=== PATIENT | female | born 1980 | race Caucasian/White ===

== ENCOUNTER → 2019-02-27 07:04 | Outpatient (CLI) | payer OTHER, MEDICAID, SELFPAY ==
[2019-02-27 08:01] LABS: Oligoclonal Banding REF LAB
--- NOTE | 2019-02-27 08:15 | RAD_ITS ---
PROCEDURE: Fluoroscopic guided Lumbar Puncture. DATE: February 27, 2019. CLINICAL INDICATION: History of possible multiple sclerosis. PHYSICIAN: Darius Peralta M.D. MEDICATIONS: 1% lidocaine administered subcutaneously for local anesthesia. ACCESS SITE: Lower posterior back. NEEDLE: 22-gauge spinal needle. SPECIMEN: Approximately 12 mL clear]CSF fluid. FLUOROSCOPY TIME (if supplied): (0:38) minutes/seconds COMPLICATIONS: None immediate. The risks, benefits, and alternatives to the procedure were explained to the patient. The specific risks of bleeding, infection, and neurovascular injury were detailed and accepted. Witnessed informed consent was obtained. The patient was placed on the fluoroscopic table in the prone position. The level for needle entry was determined and marked. The overlying skin was cleaned and prepped in the usual sterile fashion. 2% lidocaine was administered subcutaneously for local anesthesia. Under fluoroscopic guidance a 22-gauge spinal needle was advanced. The thecal sac was entered at the L2-L3 vertebral level. The inner stylet was removed. There was spontaneous flow of clear CSF fluid. The patient was placed in a reversed Trendelenburg position. Approximately 12 mL of cerebrospinal fluid was collected using gravity. The specimen was collected and submitted to the laboratory for further evaluation. The needle was withdrawn,. Hemostasis was achieved and a sterile dressing placed. The patient tolerated the procedure well without any immediate complications. The patient was placed supine with head elevated and returned to the floor in stable condition. RAD/Fluoro Guided Lumbar Puncture IMPRESSION: Successful fluoroscopic-guided lumbar puncture. Electronically Signed: Darius Peralta, at 10:15 EDT , Service support ,
[2019-02-27 08:27] VITALS: BP 103/61; PULSE 57; RESP 18; TEMP 36.6; O2SAT 100; BMI 20.7
--- NOTE | 2019-02-27 09:09 | CYSPIN_PTH ---
PATIENT: DARREN SANCHEZ LOC: PSN U#:[id number] AGE/SX: 44/F ROOM: RE02/27/[address]: GLO Tyler : 1980 BED: DIS: SPEC #: [id number] RECD: 02/27/19 12:18 STATUS: JOAN RELuanne #: [id number] YISSEL: 02/27/19 09:[address]: Amena Acosta CLINICAL QUALITY ASSURANCE SPECIALIST DEPT: CYTOLOGY RECD BY: Cristóbal Viveros ENTERED: 02/27/19 12:18 SP TYPE: CYSPIN FL BAYRON DR: Dr. Franco Le MD Tissues: Cerebrospinal Fluid Procedures: Pap Stain (control) Special Stain Group II Cytospin Fluid HEADER OPERATION: Lumbar puncture PRE-OP DIAGNOSIS: Possible MS TISSUE SUBMITTED: Cerebrospinal fluid for cytology DIAGNOSIS CYTOLOGY Cerebrospinal fluid for cytology (cytospin): Negative for malignant cells. See comment. BJ:delores 03/02/19 COMMENT Paucicellular specimen. CYTOLOGY STUDY Slides are reviewed. CYTOLOGY GROSS Received is 3 ml of clear colorless fluid labeled with the patient's name and and designated per the requisition as CSF. Submitted for cytology preparation. 02/27/19 TC:4 CPT: 00925
[2019-02-27 09:15] VITALS: BP 107/66; PULSE 61; RESP 18; O2SAT 96
[2019-02-27 09:20] LABS: Cytology, Body Fluid / CSF SEE PATHOLOGY REPORT
[2019-02-27 09:48] VITALS: BP 97/66; PULSE 63; RESP 18; O2SAT 98
[2019-02-27 09:52] LABS: Glucose Spinal Fluid 49 mg/dL (40-75)
[2019-02-27 10:04] LABS: Tested Tube # 1
[2019-02-27 10:05] LABS: Appearance CSF (character) CLEAR (Clear); Body Fluid QC Type(s) BF6Q; CSF Color COLORLESS (Colorless); RBC Count, Spinal Fluid 4 /mm-3 (None seen); White Count, CSF 0 /mm-3 (0 - 5)
[2019-02-27 10:07] LABS: Appearance CSF (character) CLEAR (Clear); CSF Color COLORLESS (Colorless); Tested Tube # 2
[2019-02-27 10:08] LABS: Body Fluid QC Type(s) BF6Q; RBC Count, Spinal Fluid 0 /mm-3 (None seen); White Count, CSF 0 /mm-3 (0 - 5)
[2019-02-27 10:32] VITALS: BP 104/64; PULSE 60; RESP 16; O2SAT 98
--- NOTE | 2019-02-27 15:48 | EEG ---
- Electroencephalogram Date of service 02/27/2019 History EEG is being done in this 38 yr F to rule out seizures EEG Description: This is an 18 channel EEG with 10-20 lead placement system. Bipolar montages, and Referential montages were reviewed. Photic stimulation and Hyperventilation were performed. The posterior dominant rhythm is 10 HZ synchronous, symmetric, reacting to eye opening and closing. Photo stimulation elicited normal driving response but no abnormal photoparoxysmal response, Hyperventilation did not elicit any abnormal photoparoxysmal response. Sleep was identified. There is no abnormal background slowing noted. There was no epileptiform discharges or electrographic seizures noted during this recording. Muscle artefact noted during the record. EEG Interpretation This is a normal awake and asleep EEG. There is no epileptiform discharges or electrographic seizures noted during the record.
[2019-03-02 12:15] LABS: Pathologist Review Reviewed
[2019-03-02 12:16] LABS: Pathologist Review Reviewed
--- NOTE | 2019-03-02 12:47 | NURSING ---
saturday pt called into radiology to talk with the nurse, francie ratliff took the call and patient really wanted to talk to the radiology nurse. Francie texted me at [phone] unfortunately did not see the text till around 1630 did return the call to the patient and talked at length with her about her symptons and her treatement. Pt stated she had tingling and numbness in shoulder going to her arms, and a headache, she did state the headache was okay as long as she laid flat, and the numbness in her lower arms was better after her ER visit on Saturday. Francie ratliff did call the patient back when I did not respond and she had the patient talk to an ER nurse. The patient had been in contact with her nerologist during this time Called patient now and she was on her way home from the hospital from getting a blood patch, stated she felt better, headache was almost gone and her numbness and tingling was much improved.
[2019-03-02 16:07] LABS: PROEL- A/G Ratio 1.3 (0.7-1.7); PROEL- Albumin 4.1 g/dL (2.9-4.4); PROEL- Alpha-1 Globulin 0.2 g/dL (0.0-0.4); PROEL- Alpha-2 Globulin 0.6 g/dL (0.4-1.0); PROEL- Beta Globulin 0.9 g/dL (0.7-1.3); PROEL- Gamma Globulin 1.4 g/dL (0.4-1.8); PROEL- Globulin, Total 3.1 g/dL (2.2-3.9); PROEL- TOTAL PROTEIN 7.2 g/dL (6.0-8.5)
[2019-03-03 08:38] LABS: Myelin Basic Protein, MBP 2.7 ng/mL (0.0-1.2)
[2019-03-03 08:38] LABS: Immunoglobulin G 1167 mg/dL (700-1600)
== END ==
PROVIDERS: Family Provider Family Medicine; PCP Family Medicine; Referring Provider Registered Nurse; Visit Provider Registered Nurse
DX: R41.3 Other amnesia (principal)
CPT/HCPCS: 62270; 77003; 82784; 82945; 83873; 83916; 84157; 84165; 87070; 87205; 88108; 88313; 89050; 89051; 95819

== ENCOUNTER 2019-02-27 22:08 | Emergency (ER) | payer OTHER, MEDICAID, SELFPAY ==
[2019-02-27 08:27] VITALS: BMI 20.7
[2019-02-27 22:10] VITALS: BP 127/85; PULSE 63; RESP 18; TEMP 36.7; O2SAT 99; BMI 20.7
--- NOTE | 2019-02-27 22:53 | ED.VISSUMM ---
- ER Visit Summary Date of Service: 02/27/19 Chief Complaint: Back and neck pain History of Present Illness: The patient is a 38 F who presents with back and neck pain that began today. Patient states she had a lumbar puncture performed today and radiology. Patient states she laid flat for 1 hour after the procedure. Patient states that she had an EEG after the lumbar puncture. Patient states that while she was having the EEG she felt pain in her upper back and neck that radiated to the posterior upper arms. Patient states she laid down and felt better. Patient states that throughout the day she noted persistent pain in her neck and back whenever she sat up or stood up. Patient states the pain radiates to the posterior aspects of her arms when she sits up or stands up as well. Patient denies any headaches. Patient denies any visual changes. Patient denies any nausea or vomiting. Patient states the lumbar puncture and EEG were ordered by Dr. Holman. Patient states she called Dr. Villalba who is covering. He advised the patient to come to the emergency department. Physical Examination: Vital signs are stable. Patient is afebrile. Patient is in no acute distress. Oral mucosa is pink and moist. Neck is supple. Trachea is midline. There is some mild paraspinal tenderness. There is no meningeal signs. There is some mild tenderness over the upper thoracic paraspinal muscles as well. There is no bony crepitance or step-off. Heart was regular rate and rhythm. Lungs are clear and equal bilaterally. Abdomen is soft and nontender. Cranial nerves II through XII are intact. There are no focal motor or sensory deficits noted. Emergency Department Course and Treatment: Patient was given IV fluids and IV caffeine. Disposition: Care of the patient was signed out to the oncoming physician for reevaluation. Impression: Post lumbar puncture headache This note was generated with [employer] dictation software. It may contain incorrect words, spelling, and punctuation that were not noted in review of the chart prior to signing ED Disposition - Plan for ED Patient: Referrals: Franco Le [Primary Care Provider] -
[2019-02-27] MEDS: 0.9% Normal Saline 1,000 ML 1000 ML IV (23:02)
--- NOTE | 2019-02-28 00:49 | ED.DEP ---
ED Disposition - Plan for ED Patient: Instructions: HEADACHE After Spinal Tap (No Patch) Referrals: Franco Le [Primary Care Provider] -
[2019-02-28] MEDS: Acetaminophen/Butalbital/Caffe 1 Tablet PO (03:06)
[2019-02-28 03:10] VITALS: PULSE 71; RESP 14; O2SAT 100
== END 2019-02-28 03:12 | disposition home or self-care (01) ==
LOC: ED 22:34
PROVIDERS: Emergency Provider Emergency Medicine; Family Provider Family Medicine; PCP Family Medicine
DX: G97.1 Other reaction to spinal and lumbar puncture (principal); Y84.4 Aspiration of fluid as the cause of abnormal reaction of the patient, or of later complication, without mention of misadventure at the time of the procedure
CPT/HCPCS: 96365; 99284; J7030; J7040

== ENCOUNTER 2019-03-02 09:16 | Day surgery (SDC) | payer OTHER, MEDICAID, SELFPAY ==
[2019-03-02 09:16] VITALS: BP 135/81; PULSE 84; RESP 19; TEMP 37.2; O2SAT 99; BMI 20.7
--- NOTE | 2019-03-02 09:27 | ED.VIS.GEN ---
History of Present Illness Chief Complaint: Headache Informant: Patient Onset: Days - Onset February 27 after lumbar puncture to evaluate for MS Context: Sudden Onset Timing: Intermittent Quality: Pain Location: Head posterior neck Current Severity: Mild Maximum Severity: Severe Worsened by: Upright was Relieved by: Supine Associated Symptoms: Nausea and tingling left upper extremity Narrative: Patient is a 38-year-old woman who had an outpatient lumbar puncture performed Saturday. She was seen Saturday evening for spinal headache. She was offered blood patch. She declined because her symptoms had improved. She presents because her symptoms are not worse. She denies fever, chills night sweats. Denies double vision, blurred vision or loss of vision. She presently denies numbness in her upper extremities. She does report nausea and has had vomiting. She has no other complaints. Prior similar symptoms: Yes Recent Illness/Hospitalization: Yes - Past Medical History (1) No significant past medical history Status: Acute Past Medical History - Allergies and Home Meds Allergies/Adverse Reactions: Allergies No Known Allergies Allergy (Verified 02/27/19 22:12) Primary Care Physician: Franco Le [Primary Care Provider] - Prior records reviewed: Yes Surgical History: noncontributory Lives: Spouse/ Significant Other Smoking Status: Never smoker Alcohol: Rare Drugs: None Review of Systems General: Denies: Chills, Fever, Malaise, Subjective, Sweats, Weight loss, - Eyes: Denies: Visual changes - bilaterally, Blurred Vision - bilaterally, Diplopia ENT: Denies: Left ear pain, Right ear pain, Rhinorrhea, Sore throat Cardiovascular: Denies: Chest pain, Palpitations Respiratory: Denies: Dyspnea, Cough, Sputum, Dyspnea on exertion Gastrointestinal: Reports: Nausea, Vomiting. Denies: Abdominal pain, Diarrhea Musculoskeletal: Reports: Neck pain. Denies: Myalgias, Arthralgias, Back pain, Swelling, Extremity Pain, -, - Neurological: Reports: Headache, Parasthesia. Denies: Weakness, Numbness Physical Exam Vital Signs/Narrative: Vital Signs Temp Pulse Resp BP Pulse Ox 03/02/19 09:16 98.9 F 84 19 H 135/81 H 99 Inital Vital Signs reviewed: Yes General: Well nourished, Well developed, No Acute Distress Head: Normocephalic, Atraumatic Eyes: Perrl, EOMI. Negative for: Pale conjunctiva, Scleral icterus, - ENT: No rhinorrhea, TM's clear Neck: Supple, Nontender, No lymphadenopathy, No JVD Cardiovascular: Regular rate, Regular rhythm, No murmurs, Normal S1, Normal S2 Respiratory: No distress, CTA bilaterally, Chest nontender Extremities: Nontender, No edema Skin: Normal color, No rash, No Trauma. Negative for: Cyanosis, Diaphoresis, Jaundice Neurological: Alert, Oriented x3, Cranial nerves II-XII grossly intact, Normal Strength, Normal Sensation Psychological: Normal affect, Normal Mood Diagnostic/Tx/Re-eval - Medical Decision Making Patient history is consistent with spinal headache. Since neuro exam is nonfocal anesthesia was paged to determine if they are able to perform a blood patch. Poke with Dr. Caleb Jaime who requested patient be sent to PACU. He will perform blood patch. ED Disposition - Plan for ED Patient: Disposition: Home or Assisted Living Diagnosis: Spinal puncture headache Instructions: HEADACHE After Spinal Tap (No Patch) Referrals: Franco Le [Primary Care Provider] -
[2019-03-02 10:30] VITALS: BP 107/62
== END 2019-03-02 12:35 | disposition home or self-care (01) ==
LOC: ED 13:41 → SDC 13:41 → AC 13:42
PROVIDERS: Emergency Provider Emergency Medicine; Family Provider Family Medicine; PCP Family Medicine; Visit Provider Anesthesiology
PROC: 3E0R3GC Introduction of Other Therapeutic Substance into Spinal Canal, Percutaneous Approach (ICD-10-PCS; CPT 62273; principal; 2019-03-02 12:55)
DX: G97.1 Other reaction to spinal and lumbar puncture (principal); Y84.4 Aspiration of fluid as the cause of abnormal reaction of the patient, or of later complication, without mention of misadventure at the time of the procedure; Y92.9 Unspecified place or not applicable
CPT/HCPCS: 62273; 99282; J7120

== ENCOUNTER → 2020-04-12 14:30 | Outpatient (CLI) | payer OTHER, MEDICAID, SELFPAY ==
[2020-04-15 16:28] LABS: HPV Reflexed? NOT INDICATED
== END ==
PROVIDERS: PCP Family Medicine; Visit Provider Obstetrics & Gynecology
DX: Z12.4 Encounter for screening for malignant neoplasm of cervix (principal)
CPT/HCPCS: 88175; G0145

== ENCOUNTER → 2023-08-06 | Outpatient (CLI) | payer OTHER, MEDICAID, SELFPAY ==
--- OUTSIDE RECORDS SUMMARY | 2023-08-06 16:00 | XMS RPT_ITS | CCD ---
Author Name Unknown Address [address] [place] [address] Organization [facility] Care Team Providers Care Recep Name Role Phone RAMYA BALDERAS CNM Primary Care Unavailable BALDERASANAYLY CNM Attending Unavailable BALDERASANAYLY CNM Admitting Unavailable JACKI PAL Consulting Unavailable PROVIDER, UNKNOWN Consulting Unavailable PROVIDER, UNKNOWN Consulting Unavailable PROVIDER, UNKNOWN Consulting Unavailable BALDERASVALENTINARAMYA CNM Attending Unavailable BALDERAS, RAMYA CNM Admitting Unavailable BALDERASVALENTINARAMYA CNM Primary Care Unavailable JACKI PAL Consulting Unavailable PROVIDER, UNKNOWN Consulting Unavailable PROVIDER, UNKNOWN Consulting Unavailable PROVIDER, UNKNOWN Consulting Unavailable BALDERASANAYLY CNM Primary Care Unavailable BALDERAS, RAMYA CNM Attending Unavailable BALDERAS, RAMYA CNM Admitting Unavailable JACKI PAL Consulting Unavailable PROVIDER, UNKNOWN Consulting Unavailable PROVIDER, UNKNOWN Consulting Unavailable PROVIDER, UNKNOWN Consulting Unavailable TRUSS, MARIAELENA DO Attending Unavailable TRUSS, MARIAELENA DO Admitting Unavailable JACKI PAL Referring Unavailable JACKI PAL Consulting Unavailable TRUSS, MARIAELENA DO Primary Care Unavailable PROVIDER, UNKNOWN Consulting Unavailable PROVIDER, UNKNOWN Consulting Unavailable PROVIDER, UNKNOWN Consulting Unavailable BALDERASVALENTINARAMYA CNM Primary Care Unavailable BALDERAS, RAMYA CNM Attending Unavailable BALDERAS, RAMYA CNM Admitting Unavailable JACKI PAL Consulting Unavailable PROVIDER, UNKNOWN Consulting Unavailable PROVIDER, UNKNOWN Consulting Unavailable PROVIDER, UNKNOWN Consulting Unavailable DAVID PATEL T Attending Unavailable JORGEDAVID BROWNLEE T Admitting Unavailable JORGEDAVID BROWNLEE T Primary Care Unavailable JACKI PAL Consulting Unavailable PROVIDER, UNKNOWN Consulting Unavailable PROVIDER, UNKNOWN Consulting Unavailable PROVIDER, UNKNOWN Consulting Unavailable BALDERAS, RAMYA CNM Primary Care Unavailable BALDERAS, RAMYA CNM Attending Unavailable BALDERAS, RAMYA CNM Admitting Unavailable JACKI PAL Consulting Unavailable PROVIDER, UNKNOWN Consulting Unavailable PROVIDER, UNKNOWN Consulting Unavailable PROVIDER, UNKNOWN Consulting Unavailable AZRA MARINO Primary Care Unavailable JACKI PAL Consulting Unavailable AZRA MARINO Smita Admitting Unavailable AZRA MARINO Attending Unavailable PROVIDER, UNKNOWN Consulting Unavailable PROVIDER, UNKNOWN Consulting Unavailable PROVIDER, UNKNOWN Consulting Unavailable RAMYA BALDERAS CNM Primary Care Unavailable RAMYA BALDERAS CNM Attending Unavailable RAMYA BALDERAS CNM Admitting Unavailable JACKI PAL Consulting Unavailable PROVIDER, UNKNOWN Consulting Unavailable PROVIDER, UNKNOWN Consulting Unavailable PROVIDER, UNKNOWN Consulting Unavailable RAMYA BALDERAS CNM Primary Care Unavailable RAMYA BALDERAS CNM Admitting Unavailable RAMYA BALDERAS CNM Attending Unavailable BROWN, JACKI Consulting Unavailable PROVIDER, UNKNOWN Consulting Unavailable PROVIDER, UNKNOWN Consulting Unavailable PROVIDER, UNKNOWN Consulting Unavailable Marilee Uriostegui DO Primary Care Provider Unava ilable BEELIZABETH FANG Attending Unavailable ELIZABETH PALOMO Referring Unavailable MARILEE URIOSTEGUI Primary Care Unavailable MARILEE URIOSTEGUI Primary Care Unavailable ELIZABETH PALOMO Attending Unavailable BEELIZABETH FANG Admitting Unavailable URIOSTEGUIMARILEE HUNT Primary Care Unavailable ROMEO HADDAD Attending Unavailable Medications Completed/Discontinued Medications Medication Drug Class(es) Dates Sig (Normalized) Sig (Original) dexamethasone phosphate 10 mg/ml injectable solution (1 source) Corticosteroid Start: 05-18-2023 End: 05-18-2023 Dexamethasone (DECADRON) injection 10 mg Problems Active Problems Problem Classification Problem Date Documented Da te Episodic/Chronic Other upper respiratory infections (4 sources) Viral upper respiratory tract infection; Translations: [Acute upper respiratory infection, unspecified] Onset: 05-18-2023 05-18-2023 Episodic Past or Other Problems Problem Classification Problem Date Documented Da te Episodic/Chronic Acute bronchitis (1 source) Acute bronchitis, unspecified; Translations: [Acute bronchitis, unspecified] Onset: 12-02-2022 Episodic Other and delivery including normal (3 sources) Encounter for routine follow-up; Translations: [Encounter for supervision of other normal , second trimester] Onset: 09-14-2021 Episodic Pleurisy; pneumothorax; pulmonary collapse (1 source) Pleurisy; Translations: [Pleurisy] Onset: 12-02-2022 Episodic Residual codes; unclassified (1 source) 29 weeks gestation of ; Translations: [29 weeks gestation of ] Onset: 07-25-2021 Episodic Results Test Name Value Interpretation Reference Range Facil ity Vital Signs Date Time Vital Sign Value Performing Clinician Facility 05-18-2023 22:54-0400 Diastolic blood pressure 72 mm[Hg] Romeo Haddad MD Work Phone: [facility] 05-18-2023 22:54-0400 Heart rate 68 /min Romeo Haddad MD Work Phone: [facility] 05-18-2023 22:54-0400 SaO2% (BldA) [Mass fraction] 98 % Romeo Haddad MD Work Phone: [facility] 05-18-2023 22:54-0400 Systolic blood pressure 118 mm[Hg] Romeo Haddad MD Work Phone: [facility] 05-18-2023 22:02-0400 Body height 175.3 cm Romeo Haddad MD Work Phone: [facility] 05-18-2023 22:02-0400 Body mass index (BMI) [Ratio] 20.67 kg/m2 Romeo Haddad MD Work Phone: [facility] 05-18-2023 22:02-0400 Body temperature 99 [degF] Romeo Haddad MD Work Phone: [facility] 05-18-2023 22:02-0400 Body weight 63.5 kg Romeo Haddad MD Work Phone: [facility] 05-18-2023 22:02-0400 Respiratory rate 18 /min Romeo Haddad MD Work Phone: [facility] Encounters Encounter Date Encounter Type Care Provider Facility Start: 05-18-2023 End: 05-19-2023 Emergency department patient visit MARILEE URIOSTEGUI [facility] Start: 05-18-2023 End: 05-18-2023 Emergency department patient visit Romeo Haddad MD Work Phone: [facility] Emergency Dept Procedures Date Procedure Procedure Detail Performing Clinician Start: 05-18-2023 Iadna streptococcus group a amplified probe tq Romeo Haddad MD Work Phone: Plan of Treatment Date Care Activity Detail Author Start: 03-15-2023 Influenza vaccination given INFLUENZA VACCINE (#1) [facility] Start: 2021 Screening for malignant neoplasm of breast MAMMOGRAM [facility] Start: 12-22-1999 ANNUAL WELLNESS VISIT ANNUAL WELLNESS VISIT [facility] Start: 1993 Depression screening using PHQ-9 (Patient Health Questionnaire 9) score DEPRESSION SCREENING [facility] Start: 1992 Administration of diphtheria + tetanus + acellular pertussis vaccine DTAP/TDAP/TD VACCINE (1 - Tdap) [facility] Start: 06-22-1982 COVID-19 VACCINE (#1) COVID-19 VACCINE (#1) [facility] Start: 1981 HPV/COTEST HPV/COTEST [facility] Start: 1981 Screening for malignant neoplasm of cervix [facility] End: 05-18-2023 Influenza virus A and B RNA and SARS-CoV-2 (COVID-19) N gene panel - Respiratory specimen by IVY with probe detection SARS-COV-2, Flu A, FLU B (PCR) Panel Microbiology SAMMY One Time for 1 Occurrences starting 05/18/2023 until 05/18/2023 [facility] Work Phone: Payers Date Payer Category Payer Private Health Insurance [facility] [id number] 2022-Present [phone] [address] [place] [address] Medicaid [id number] 2016 Unknown [employer] [id number] 2016-Present [phone] [address] [place] [address] Indemnity [id number] 1980 Unknown [id number] [id number]. 651 1981 Unknown [id number] 2.16.840.1.661049.3.579.2. 651 1980 Unknown [id number] 2.16.840.1.853939.3.579.2. 651 1980 Unknown [id number] 2.16.840.1.167837.3.579.2. 651 1980 Unknown [id number] 2.16.840.1.125809.3.579.2. 651 1980 Unknown [id number] 2.16.840.1.099009.3.579.2. 651 1980 Unknown [id number] 2.16.840.1.055670.3.579.2. 651 1980 Unknown [id number] 2.16.840.1.173029.3.579.2. 651 1980 Unknown [id number] 2.16.840.1.313207.3.579.2. 1 1980 Unknown [id number] 2.16.840.1.752921.3.579.2. 651 1980 Unknown [id number] 2.16.840.1.708974.3.579.2. 297 1980 Unknown [id number] 2.16.840.1.526031.3.579.2. 297 1980 Unknown [id number] 2.16.840.1.715696.3.579.2. 297 Medicaid [id number] Private Health Insurance [id number] Unknown [id number] Unknown [id number] Unknown [id number] Social History Date Type Detail Facility Tobacco smoking status OKIS Tobacco smoking consumption unknown [facility] Start: 11-09-2013 End: 05-18-2023 History of Social function [facility] Start: 11-09-2013 End: 05-18-2023 Tobacco use panel [facility] Brief social Pay for mortgage/rent Not on file [facility] Start: 1980 Sex Assigned At Not on file [facility] Emergency department Note 05-18-2023 Azra Ely RN - 05/18/2023 10:53 PM EDT Note Date & Type Note Facility 05-18-2023 Emergency department Note Discharge paperwork gone over. No further questions at this time. Respirations easy and unlabored. [facility] Emergency department Note 05-18-2023 Azra Ely RN - 05/18/2023 10:53 PM EDSerjio Donato RN - 05/18/2023 9:59 PM EDT Note Date & Type Note Facility 05-18-2023 Emergency department Note Discharge paperwork gone over. No further questions at this time. Respirations easy and unlabored. Pt states that Tone she began having nasal/ chest congestion and symptoms have progressed to sore throat. Pt reports white patches in back of throat Pt is alert and oriented x 4 RR are equal and unlabored Skin PWD documented in this encounter [facility] Emergency department Triage note 05-18-2023 Serjio Lundy RN - 05/18/2023 9:59 PM EDT Note Date & Type Note Facility 05-18-2023 Emergency department Triage note Pt states that Tone she began having nasal/ chest congestion and symptoms have progressed to sore throat. Pt reports white patches in back of throat Pt is alert and oriented x 4 RR are equal and unlabored Skin PWD [facility] Evaluation note Note Date & Type Note Facility documented in this encounter [facility] Hospital Discharge instructions Attachments Note Date & Type Note Facility Hospital Discharge instructions The following attachments cannot be sent through Care Everywhere.Sore Throat (Finnish Bahamian)URI (Upper Respiratory Infection) (Finnish Bah[place]ian)documented in this encounter [facility] Summary Purpose Family History No Family History Records FoundNo Family History Records FoundNo Family History Records FoundNo Family History Records FoundNo Family History Records Found Advance Directives No Advanced Directives Records FoundNo Advanced Directives Records FoundNo Advanced Directives Records FoundNo Advanced Directives Records FoundNo Advanced Directives Records Found Additional Source Comments INFORMATION SOURCE (unrecogn ized section and content) DATE CREATED AUTHOR AUTHOR'S ORGANIZ ATION 02/01/2022 [facility] ([place]) DATE CREATED AUTHOR AUTHOR'S ORGANIZ ATION 06/22/2022 [facility] DATE CREATED AUTHOR AUTHOR'S ORGANIZ ATION 10/01/2022 [facility] DATE CREATED AUTHOR AUTHOR'S ORGANIZ ATION 05/19/2023 [facility] Reason for Visit (unrecogniz ed section and content) Scheduled Active and Recently Administ ered Medications (unrecognized section and content) Care Teams (unrecognized sec tion and content) FOR RECORDS PERTAINING TO PATIENTS WHO ARE OR HAVE BEEN ENROLLED IN A CHEMICAL DEPENDENCY/SUBSTANCEABUSE PROGRAM, SOME INFORMATION MAY BE OMITTED. This clinical summary was aggregated from multiple sources. Caution should be exercised in using it in the provision of clinical care. This summary normalizes information from multiple sources, and as a consequence, information in this document may materially change the coding, format and clinical context of patient data. In addition, data may be omitted in some cases. CLINICAL DECISIONS SHOULD BE BASED ON THE PRIMARY CLINICAL RECORDS. [employer] provides no warranty or guarantee of the accuracy or completeness of information in this document.
[2023-08-06 16:20] LABS: Absolute Lymphocyte Count 2.55 X10^3/uL (0.83-4.51); Absolute Neutrophil Count 4.8 X10^3/uL (2.0-7.7); Basophil# 0.05 X10^3/uL; Basophil% 0.6 % (0-1); Eosinophil# 0.34 X10^3/uL; Eosinophils% 4.1 % (0-5); Hematocrit 41.1 % (37-47); Hemoglobin 13.9 g/dL (12.0-15.0); Lymphocyte # 2.55 X10^3/ul (0.83-4.51); Lymphocyte % 30.9 % (19-41); Mean Corp Hgb Conc 33.8 g/dL (32-36); Mean Corpuscular Hgb 31.6 pg (27.0-32.0); Mean Corpuscular Volume 93.4 fL (81-99); Mean Platelet Vol. 9.9 fl (6.2-12.0); Monocyte# 0.53 X10^3/uL; Monocyte% 6.4 % (0-10); NRBC Flagged by Analyzer 0 % (0-5); Neutrophil # 4.75 X10^3/uL (2.7-7.7); Neutrophil % 57.8 % (47-70); Platelet Count 216 K/mm3 (150-450); RBC Distribution Width CV 11.8 % (11.6-14.6); RBC Distribution Width SD 40.8 fl (35.1-43.9); White Blood Count 8.2 K/mm3 (4.4-11.0)
[2023-08-06 16:45] LABS: Vitamin B12 542 pg/mL (211-911); Vitamin D,25 Hydroxy 41.5 ng/mL
[2023-08-06 17:09] LABS: AST(SGOT) 21 U/L (15-37); Alanine Aminotransfer ALT/SGPT 27 U/L (13-56); Albumin, Serum 3.9 g/dL (3.2-5.0); Alkaline Phosphatase 76 U/L (45-117); Anion Gap 2 (5-15); BUN 11 mg/dL (7-18); BUN/Creat Ratio 13.7 RATIO (10-20); Calcium,Total 9.4 mg/dL (8.5-10.1); Chloride 105 mmol/L (98-107); Cholesterol 149 mg/dL (200); EST Glomerular Filtration Rate 83 mL/min (>60); Est Glom Filt Rate - Afr Amer 101 mL/min (>60); Ferritin 37 ng/mL (8-252); Glucose 101 mg/dL (74-106); High Density Lipoprotein 73 mg/dL; Potassium 4.2 mmol/L (3.5-5.1); Protein, Total 7.9 g/dL (6.4-8.2); Sodium Level 137 mmol/L (136-145); Thyroid Stim Hormone (TSH) 2.43 uIU/mL (0.358-3.74); Triglycerides 107 mg/dL; Very Low Density Lipoprotein 21 mg/dL (5-40)
== END | disposition home or self-care (01) ==
LOC: LAB 15:32
PROVIDERS: PCP Physician Assistant; Referring Provider Internal Medicine Endocrinology, Diabetes & Metabolism; Visit Provider Internal Medicine Endocrinology, Diabetes & Metabolism
DX: R53.81 Other malaise (principal); R53.83 Other fatigue; E06.3 Autoimmune thyroiditis; E04.9 Nontoxic goiter, unspecified; E03.8 Other specified hypothyroidism; E55.9 Vitamin D deficiency, unspecified
CPT/HCPCS: 36415; 80053; 80061; 82306; 82607; 82728; 84439; 84443; 85025

== ENCOUNTER → 2025-01-05 | Outpatient (CLI) | payer OTHER, SELFPAY ==
[2025-01-05 12:38] LABS: Absolute Lymphocyte Count 1.93 X10^3/uL (0.83-4.51); Absolute Neutrophil Count 3.5 X10^3/uL (2.0-7.7); Basophil# 0.05 X10^3/uL; Basophil% 0.8 % (0-1); Eosinophil# 0.18 X10^3/uL; Eosinophils% 2.9 % (0-5); Hematocrit 42.1 % (37-47); Hemoglobin 14.6 g/dL (12.0-15.0); Lymphocyte # 1.93 X10^3/ul (0.83-4.51); Lymphocyte % 30.7 % (19-41); Mean Corp Hgb Conc 34.7 g/dL (32-36); Mean Corpuscular Hgb 31.9 pg (27.0-32.0); Mean Corpuscular Volume 92.1 fL (81-99); Mean Platelet Vol. 10.7 fl (6.2-12.0); Monocyte# 0.56 X10^3/uL; Monocyte% 8.9 % (0-10); NRBC Flagged by Analyzer 0 % (0-5); Neutrophil # 3.54 X10^3/uL (2.7-7.7); Neutrophil % 56.4 % (47-70); Platelet Count 199 K/mm3 (150-450); RBC Distribution Width CV 11.8 % (11.6-14.6); RBC Distribution Width SD 39.8 fl (35.1-43.9); Red Blood Count 4.57 M/mm3 (4.2-5.4); White Blood Count 6.3 K/mm3 (4.4-11.0)
[2025-01-05 13:29] LABS: ALB/GLOB Ratio 1.6 RATIO (0.9-2.4); AST(SGOT) 22 U/L (<=31); Alanine Aminotransfer ALT/SGPT 18 U/L (<=34); Albumin, Serum 4.3 g/dL (3.5-5.0); Alkaline Phosphatase 62 U/L (35-104); Anion Gap 9 (5-15); BUN 12 mg/dL (4-19); BUN/Creat Ratio 13.8 RATIO (10-20); Calcium,Total 9.7 mg/dL (7.6-11.0); Carbon Dioxide 26.4 mmol/L (21.0-32.0); Chloride 103 mmol/L (98-108); Creatinine, Serum 0.87 mg/dL (0.70-1.20); EST Glomerular Filtration Rate 84 (>60); Globulin 2.8 g/dL (2.2-4.2); Glucose 80 mg/dL (70-99); Potassium 4.4 mmol/L (3.3-5.1); Protein, Total 7.1 g/dL (5.9-8.4); Sodium Level 138 mmol/L (133-145); Total Bilirubin 0.84 mg/dL (0.00-1.30)
== END | disposition home or self-care (01) ==
PROVIDERS: PCP Physician Assistant; Referring Provider Internal Medicine Endocrinology, Diabetes & Metabolism; Visit Provider Internal Medicine Endocrinology, Diabetes & Metabolism
DX: E03.8 Other specified hypothyroidism (principal); E06.3 Autoimmune thyroiditis; E04.9 Nontoxic goiter, unspecified
CPT/HCPCS: 36415; 80053; 84439; 84443; 85025